=== PATIENT | male | born 1965 | race Caucasian/White ===

== ENCOUNTER 2019-11-22 09:40 | Emergency (ER) | payer SELFPAY ==
[~2019-11-22] VITALS: Ht 175.3 cm; Wt 87.0 kg
[~2019-11-22 09:40] MED LIST: HYDR-1179 PO
--- NOTE | 2019-11-22 09:59 | PHYS DOC ---
Past History Past Medical History: No Pertinent History Past Surgical History: Appendectomy Alcohol Use: Rarely Drug Use: None General Adult EDM: Chief Complaint: ANXIETY/PANIC ATTACK HPI: HPI: 54 yo M who denies any significant past medical history, presents the ED with complaints of "I think I'm having panic attacks," with complaints of increased stress, worrying and inability to sleep at night due to his "to do" list and work-related stressors. 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 States while he was walking into work this morning and had "weak knees," such that he thought he would collapse. Later had focal, nonradiating, distal arm/lower bicep tenderness. Took his blood pressure in both arms at work, both approximately 160/105. States he is not on any routine medications, and has no history of hypertension. Denies any alcohol or drug use. No [id number]-[id number] stimulants, weight loss medications or large caffeine consumption. States he's always been stressed but his stress has significantly increased since April -likely all related to covid pandemic, staffing cuts with same patient load. No prior h/o cad or syncope. Review of Systems: Review of Systems: Constitutional: Denies fever or chills, denies any jaw or shoulder discomfort Eyes: Denies change in visual acuity HENT: Denies nasal congestion or sore throat Respiratory: Denies cough or shortness of breath or hemoptysis Cardiovascular: Denies chest pain or edema or syncope GI: Denies abdominal pain, nausea, vomiting, bloody stools or diarrhea : Denies dysuria Musculoskeletal: Denies back pain or joint pain Integument: Denies rash Neurologic: Denies headache, focal weakness or sensory changes or nuchal rigidity Endocrine: Denies polyuria or polydipsia Lymphatic: Denies swollen glands Psychiatric: Denies depression or SI or HI Heart Score: Risk Factors: Risk Factors: DM, Current or recent (<one month) smoker, HTN, HLP, family history of CAD, obesity. Risk Scores: Score 0 - 3: 2.5% MACE over next 6 weeks - Discharge Home Score 4 - 6: 20.3% MACE over next 6 weeks - Admit for Clinical Observation Score 7 - 10: 72.7% MACE over next 6 weeks - Early Invasive Strategies Allergies: Allergies: Allergies Coded Allergies Type Severity Reaction Last Updated Verified No Known Allergies Allergy Unknown 11/25/15 Yes Physical Exam: PE: Constitutional: Well developed, well nourished, no acute distress, non-toxic appearance. [] HENT: Normocephalic, atraumatic, Eyes: EOMI, conjunctiva normal, no discharge. [] Neck: Normal range of motion, supple, Cardiovascular:Heart rate regular rhythm, no murmur [] Lungs & Thorax: Bilateral breath sounds clear to auscultation [] Abdomen: Bowel sounds normal, soft, no tenderness, no masses, no pulsatile m asses. [] Skin: Warm, dry, no erythema, no rash. [] Extremities: No tenderness, no cyanosis, no clubbing, ROM intact, no edema. [] Neurologic: Alert and oriented X 3, normal motor function, normal sensory function, no focal deficits noted. [] Psychologic: Affect normal, judgement normal, mood normal. [] does appear to be stressed but is very well composed - no active panic attack Current Patient Data: Vital Signs: Vital Signs Date Time Temp Pulse Resp B/P (MAP) Pulse Ox O2 Delivery O2 Flow Rate FiO2 11/22/19 09:49 97.8 80 14 124/87 (99) 98 Room Air EKG: EKG: Sinus rhythm at 69 bpm, left axis deviation, normal intervals, T wave inversion lead III, no ST elevations or ST depressions Radiology/Procedures: Radiology/Procedures: IMAGING REPORT Signed PATIENT: YVETTE BAI JACCOUNT: [id number] : 1965 LOCATION: ER AGE: 54 SEX: M EXAM STATUS: REG ER ORD. PHYSICIAN: FELIPE VIDALES DO REASON: anxiety PROCEDURE: PORTABLE CHEST 1V PORTABLE CHEST 1V History: Reason: anxiety / Spl. Instructions: / History: Comparison: None. Findings: No consolidation or pleural effusion. Normal heart size. No pneumothorax. Impression: 1. No acute cardiopulmonary process. Electronically signed by: Pato Ayala DO (11/22/2019 10:57 AM) [id number] DICTATED AND SIGNED BY: PATO AYALA DO DATE: 11/22/19 1057 CC: PCP,NO; FELIPE PIERCE DO ~ Course & Med Decision Making: Course & Med Decision Making Pertinent Labs and Imaging studies reviewed. (See chart for details) Concern for generalized anxiety versus stress disorder versus panic attacks. Patient with no relief with oral benzo given in ED. Will refer to primary care physician and outpatient psychiatry -we will prescribe Atarax as needed for sleep. Tricked ED return precautions given for hallucinations, suicidal or homicidal ideations or chest pain. Encouraged urgent outpatient follow-up with PMD and psychiatry. Life-threatening processes were considered but are low suspicion at this time, given history and physical exam. Pt was educated on all prescription medications and adverse effects. All patient's questions were answered and pt was stable at time of discharge. Life/limb-threatening differential includes but is not limited to, coronary artery disease, atypical chest pain, end organ damage/sepsis, head and neck injury, neurologic deficit, alcohol/drug ingestion, toxidrome, suicidal/homicidal ideations plans or attempts, psychosis or mental illness resulting in self neglect and inability to caare for self. I spoken with the patient and her caregivers. I explained the patient's condition, diagnoses and treatment plan based on the information available to me at this time. I have answered the patient and her caregiver's questions and addressed any concerns. The patient and her caregivers have a good understanding of patient's diagnosis, condition and treatment plan as can be expected at this point. Vital signs have been stable. Patient's condition is stable and appropriate for discharge from the emergency department. Patient will pursue further outpatient evaluation with primary care physician or other designated or consulting physician as outlined in the discharge instructions. The patient and/or caregivers are agreeable to this plan of care and follow-up instructions have been explained in detail. The patient and/or caregivers have received these instructions in written form and have expressed an understanding of the discharge instructions. The patient and/or caregivers are aware that any significant change of condition or worsening of symptoms should prompt immediate return to this or the closest emergency department or call to 911. Dylan Disclaimer: Dylan Disclaimer: This electronic medical record was generated, in whole or in part, using a voice recognition dictation system. Departure Departure: Impression: Primary Impression: Anxiety Disposition: HOME/RESIDENCE PRIOR TO ADM Condition: STABLE Referrals: PCPYOBANI (PCP) FOLLOW UP WITH FAMILY MEDICINE: [facility], [facility] [address] [place] [address] OR Effie [facility] [address], Patient Instructions: Anxiety and Panic Attacks Additional Instructions: FOLLOW UP WITH PSYCHIATRY: [facility] [address], [address] [place] [address] [facility] [address] [place] [address] Alida NOLASCO [address], [address] [place] [address] EMERGENCY DEPARTMENT GENERAL DISCHARGE INSTRUCTIONS Thank you for coming to [facility] (ED) today and trusting us with you care. We trust that you had a positivie experience in our Emergency Department. If you wish to speak to the department management, you may call the director at [phone]. YOUR FOLLOW UP INSTRUCTIONS ARE FOLLOWS: 1. Do you have a private Doctor? If you do not have a private doctor, please ask for a resource list of physicians or clinics that may be able to assist you with follow up care. 2. The Emergency Physician has interpreted your x-rays. The X-Ray specialist will also review them. If there is a change in the findings, you will be notified in 48 hours when at all possible. 3. A lab test or culture has been done, your results will be reviewed and you will be notified if you need a change in treatment. ADDITIONAL INSTRUCTIONS AND INFORMATION: 1. Your care today has been supervised by a physician who is specially trained in emergency care. Many problems require more than one evaluation for a complete diagnosis and treatment. We recommend that you schedule your follow up appointment as recommended to ensure complete treatment of you illness or injury. If you are unable to obtain follow up care and continue to have a problem, or if your condition worsens, we recommend that you return to the ED. 2. We are not able to safely determine your condition over the phone nor are we able to give sound medical advice over the phone. For these safety reasons, if you call for medical advice we will ask you to come to the ED for further evaluation. 3. If you have any questions regarding these discharge instructions please call the ED at [phone]. SAFETY INFORMATION: In the interest of safety, wellness, and injury prevention; we encourage you to wear your sealbelt, if you smoke; quite smoking, and we encourage family to use a protective helmet for bicycling and other sporting events that present an increased risk for head injury. IF YOUR SYMPTOMS WORSEN OR NEW SYMPTOMS DEVELOP, OR YOU HAVE CONCERNS ABOUT YOUR CONDITION; OR IF YOUR CONDITION WORSENS WHILE YOU ARE WAITING FOR YOUR FOLLOW UP APPOINTMENT; EITHER CONTACT YOUR PRIMARY CARE DOCTOR, THE PHYSICIAN WHOSE NAME AND NUMBER YOU WERE GIVEN, OR RETURN TO THE ED IMMEDIATELY. Scripts Hydroxyzine Hcl (HYDROXYZINE HCL) 25 Mg Tablet 1 TAB PO PRN BID PRN for ANXIETY / AGITATION, #15 TAB 0 Refills Be careful as this medication may make you mildly tired. I recommend not driving on this medication or operating heavy machinery. Prov: FELIPE VIDALES DO 11/22/19 FELIPE VIDALES DO Nov 22, 2019 09:59
[2019-11-22] MEDS ORDERED: LORazepam 1 MG TABLET PO ONE (10:30)
[2019-11-22 10:56] LABS: BASO # 0.1 x10^3/uL (0.0-0.2); BASO % 1 % (0-3); EOS # 0.1 x10^3/uL (0.0-0.7); EOS % 1 % (0-3); HEMATOCRIT 44.6 % (39.0-53.0); HEMOGLOBIN 14.4 g/dL (13.0-17.5); LYMPH # 2.1 x10^3/uL (1.0-4.8); LYMPH % 33 % (24-48); MEAN CORPUSCULAR HEMOGLOBIN 29 pg (25-35); MEAN CORPUSCULAR HGB CONC 32 g/dL (31-37); MEAN CORPUSCULAR VOLUME 90 fL (79-100); MONO # 0.5 x10^3/uL (0.0-1.1); MONO % 8 % (0-9); NEUT # 3.7 x10^3uL (1.8-7.7); NEUT % 57 % (31-73); PLATELET COUNT 218 x10^3/uL (140-400); RED BLOOD COUNT 4.98 x10^6/uL (4.30-5.70); RED CELL DISTRIBUTION WIDTH 13.4 % (11.5-14.5); WHITE BLOOD COUNT 6.5 x10^3/uL (4.0-11.0)
--- NOTE | 2019-11-22 11:00 | RAD ---
PORTABLE CHEST 1V History: Reason: anxiety / Spl. Instructions: / History: Comparison: None. Findings: No consolidation or pleural effusion. Normal heart size. No pneumothorax. Impression: 1. No acute cardiopulmonary process. Electronically signed by: Pato Ayala DO (11/22/2019 10:57 AM) [id number]
[2019-11-22 11:13] LABS: GFR 78.5; POTASSIUM 4.6 mmol/L (3.5-5.1)
[2019-11-22 11:20] LABS: ALBUMIN 3.8 g/dL (3.4-5.0); ALBUMIN/GLOBULIN RATIO 1.1 (1.0-1.7); MAGNESIUM 2.3 mg/dL (1.8-2.4); TOTAL PROTEIN 7.2 g/dL (6.4-8.2)
[2019-11-22] MEDS ORDERED: HYDR25TA PO (11:46)
[2019-11-22 11:50] VITALS: BP 128/71
--- NOTE | 2019-11-22 23:49 | EKG ---
[address] [address] Test Date: 2019-11-22 Test Time: 10:48:46 Pat Name: YVETTE BAI Department: Room: Gender: M Gas Manager: : 1965 Requested By: FELIPE VIDALES Order Number: [id number] Reading MD: Measurements Intervals [place] Rate: 69 P: 22 [place]: 190 QRS: -4 QRSD: 80 T: 19 QT: 374 QTc: 402 Interpretive Statements SINUS RHYTHM LEFTWARD AXIS NO SPECIFIC ECG ABNORMALITIES RI6.02 No previous ECG available for comparison
== END 2019-11-22 11:50 | disposition home or self-care (01) ==
LOC: ER 09:40
DX: F41.9 Anxiety disorder, unspecified (principal)
CPT/HCPCS: 36415; 71045; 80053; 82550; 83735; 84484; 85025; 93005; 99285-25

== ENCOUNTER → 2021-03-19 | Day surgery (SDC) | payer OTHER ==
[~2021-03-19] MED LIST changes: +0.9 % SODIUM CHLORIDE 10 ML DISP.SYRIN. IV ONE; +ACETAMINOPHEN 500 MG TABLET PO ONE; +DEXAMETHASONE SOD PHOS 20 MG/5 ML VIAL. ONE; +GELATIN SPONGE SIZE 12-7MM SPONGE. ONE; +GLYCOPYRROLATE 1 MG/5 ML VIAL. ONE; +HYDR25TA PO; +IPRATRPIUM/ALBUTEROL 0.5/2.5MG 3 ML NEBU. NEB PRN; +IV RINGERS SOLUTION,LACTATED 1,000 ML IV SCH; +KETOROLAC 30 MG/ML VIAL. ONE; +LIDOCAINE 1% Multi-Dose 20 ML VIAL. ONE; +LIDOCAINE 1% PF 30 ML VIAL. ONE; +LIDOCAINE 1%/EPI 1:100,000 20 ML VIAL. IJ ONE; +LIDOCAINE 1%/EPI 1:100,000 20 ML VIAL. ONE; +LIDOCAINE 2% PF 5 ML VIAL. ONE; +MIDAZOLAM HCL PF 2 MG/2 ML VIAL. IV ONE; +MIDAZOLAM HCL PF 2 MG/2 ML VIAL. ONE; +NEOSTIGMINE 10 MG/10 ML VIAL. ONE; +ONDANSETRON PF 4 MG/2 ML VIAL. IV PRN; +ONDANSETRON PF 4 MG/2 ML VIAL. ONE; +OXYMETAZOLINE 0.05% NASAL SPRAY 30ML BOTTLE. NS ONE; +PROPOFOL 10,000 MCG/ML (20ML) VIAL IV ONE; +ROCURONIUM 50 MG/5 ML VIAL. ONE; +SEVOFLURANE 31 TO 60 MINUTES. IH ONE; +SUCCINYLCHOLINE 200 MG/10 ML VIAL. ONE
--- NOTE | 2021-03-19 10:20 | NUR ---
patient nauseated, x3 dry heaves. No emesis. Patient instructed to slow deep breath, sniff alcohol wipe. Nausea improved after few minutes.
[2021-03-19 10:35] VITALS: BP 132/82
--- NOTE | 2021-03-19 11:55 | OP ---
DATE OF SURGERY: 03/19/2021 PREOPERATIVE DIAGNOSIS: Nasal obstruction from inferior turbinate hypertrophy. POSTOPERATIVE DIAGNOSIS: Nasal obstruction from inferior turbinate hypertrophy. PROCEDURE PERFORMED: Radiofrequency reduction of inferior nasal turbinates. ANESTHESIA: General anesthetic. BLOOD LOSS: Minimal. INDICATIONS FOR THE PROCEDURE: Chronic nasal obstruction. DESCRIPTION OF PROCEDURE: The patient was brought to the operating room and was placed on the operating room table in supine position. He was given a general anesthetic. His nose was then decongested and the face and the nose were then prepped with iodine preparation, after which the anterior of the nose was examined and the inferior nasal turbinates were injected with normal saline after which a radiofrequency wand was then gently placed into the expanded mucosal tissue of the inferior turbinate on the left side and radiofrequency energy was applied. This was accomplished at 2 sites recognizing the contraction of the mucosa with the application of radiofrequency energy. The right side was then examined and in a similar fashion with saline, injected into the inferior turbinate. The expanded portion was then treated placing the radiofrequency wand within the tissue and applying radiofrequency energy until the mucosa contracted. This was accomplished at 2 different sites. After which a large speculum was then taken and both inferior turbinates were outfractured on each side. The procedure was then completed. His nose was then irrigated. The nasopharynx was suctioned. No bleeding was occurring and the patient was recovered from his anesthesia and taken to recovery room in stable condition. DINAH DR: Miki TID: [id number]
== END | disposition home or self-care (01) ==
LOC: SURG 07:40
PROVIDERS: ATTEND Otolaryngology
DX: J34.89 Other specified disorders of nose and nasal sinuses (principal); J34.3 Hypertrophy of nasal turbinates; J34.2 Deviated nasal septum; J31.0 Chronic rhinitis; Z72.89 Other problems related to lifestyle; Z98.890 Other specified postprocedural states; Z98.52 Vasectomy status
CPT/HCPCS: 30801; J0171; J1100; J1885; J2001; J2250; J2405; J2704; J2710; J3010; J3490; J7120; J0696